=== PATIENT | male | born 1940 | race Two or more races ===

== ENCOUNTER 2019-09-09 07:48 | Day surgery (SDC) | payer OTHER | END 2019-09-09 14:10 | disposition home or self-care (01) | LOC: AMB-ENDOS 07:48 | DX: K62.89 Other specified diseases of anus and rectum (principal); K64.1 Second degree hemorrhoids ==

== ENCOUNTER 2019-10-14 13:15 | Inpatient (IN) | payer OTHER ==
[~2019-10-14] VITALS: Ht 182.9 cm; Wt 95.7 kg
[2019-10-14] MEDS ORDERED: GLIMEPIRIDE2 M1 PO (14:15)
[2019-10-14] MEDS ORDERED: AMLODIPINE BESY10 MG PO (14:15)
[2019-10-14] MEDS ORDERED: SIMVASTATIN20 MG PO (14:16)
[2019-10-14] MEDS ORDERED: METFORMIN HCL1000 M2 PO (14:16)
[2019-10-14] MEDS ORDERED: LANTUS SOL100 UNIT/1 (14:16)
[2019-10-25] MEDS ORDERED: POLY119PG PO (12:52)
[2019-10-25] MEDS ORDERED: OXYC1TAB9 PO (12:52)
== END 2019-10-25 14:03 | disposition home or self-care (01) | DRG 330 ==
LOC: ADM 13:15 → SURH 10-18 05:05 → O/R 10-18 05:05 → SURH 10-18 13:15 → EDSTATUS 10-18 13:15 → ADM 10-18 13:15 → SURH 10-18 14:45
PROVIDERS: ADMIT Colon & Rectal Surgery; ATTEND Colon & Rectal Surgery
PROC: 0DTP0ZZ Resection of Rectum, Open Approach (ICD-10-PCS; 2019-10-18)
PROC: 0DQ80ZZ Repair Small Intestine, Open Approach (ICD-10-PCS; principal; 2019-10-18 14:45)
PROC: 05HY33Z Insertion of Infusion Device into Upper Vein, Percutaneous Approach (ICD-10-PCS; 2019-10-20)
DX: C19 Malignant neoplasm of rectosigmoid junction (principal); K91.89 Other postprocedural complications and disorders of digestive system; K91.71 Accidental puncture and laceration of a digestive system organ or structure during a digestive system procedure; K56.7 Ileus, unspecified; K94.00 Colostomy complication, unspecified; E78.00 Pure hypercholesterolemia, unspecified; N18.3 Chronic kidney disease, stage 3 (moderate); D07.5 Carcinoma in situ of prostate; N20.0 Calculus of kidney; D64.9 Anemia, unspecified; I12.9 Hypertensive chronic kidney disease with stage 1 through stage 4 chronic kidney disease, or unspecified chronic kidney disease; E11.22 Type 2 diabetes mellitus with diabetic chronic kidney disease; Z93.3 Colostomy status

== ENCOUNTER 2020-11-23 05:45 | Day surgery (SDC) | payer OTHER ==
[~2020-11-23 05:45] MED LIST: AMLODIPINE BESY10 MG PO; GLIMEPIRIDE2 M1 PO; LANTUS SOL100 UNIT/1; METFORMIN HCL1000 M2 PO; OXYC1TAB9 PO; POLY119PG PO; SIMVASTATIN20 MG PO
== END 2020-11-23 10:20 | disposition home or self-care (01) ==
LOC: AMB-ENDOS 05:45
PROVIDERS: ATTEND Colon & Rectal Surgery
DX: K63.5 Polyp of colon (principal); K64.1 Second degree hemorrhoids; Z20.822 Contact with and (suspected) exposure to COVID-19